=== PATIENT | female | born 1990 | race African-American/Black ===

== ENCOUNTER 2020-03-31 02:15 | Inpatient (IN) ==
[2020-03-31] MEDS ORDERED: LACTATED RINGERS 500 ML IV ONE (03:04)
[2020-03-31] MEDS ORDERED: ONDANSETRON 4 MG/2 ML VIAL IV PRN ×3 (03:12→16:04)
[2020-03-31] MEDS ORDERED: MEPERIDINE 50 MG/1 ML VIAL IV PRN (03:12)
[2020-03-31] MEDS ORDERED: LACTATED RINGERS 1,000 ML IV ONE (03:20)
[2020-03-31] MEDS ORDERED: TERBUTALINE 1 MG/1 ML VIAL SUBCUT ONE (04:36)
[2020-03-31] MEDS ORDERED: BUTORPHANOL 2 MG/ML VIAL IV ONE (05:53)
[2020-03-31] MEDS ORDERED: BUTORPHANOL 2 MG/ML VIAL ONE (05:55)
[2020-03-31] MEDS ORDERED: LACTATED RINGERS 1,000 ML IV PRN (10:34)
[2020-03-31] MEDS ORDERED: FAMOTIDINE 20 MG/2 ML VIAL IV ONE (10:39)
[2020-03-31] MEDS ORDERED: ePHEDrine 50 MG/ML AMP IV PRN (10:39)
[2020-03-31] MEDS ORDERED: CITRIC ACID/SODIUM CITRATE 30 ML UDCUP PO ONE (10:39)
[2020-03-31 10:56] LABS: Basophils % 0.1 % (0.0-0.8); Hematocrit 33.7 VOL% (35.7-47.0); Hemoglobin 10.6 GM/DL (12.0-16.0); Immature Granulocytes % 0.5 %; Immature Granulocytes Absolute 0.06 #; Lymphocytes # 0.7 10*3/uL (1.4-4.0); Lymphocytes % 6.3 % (21.3-54.2); Mean Corpuscular HGB Conc 31.5 GM/DL (32-36); Monocytes % 3.5 % (1.7-12.7); Neutrophils % 89.6 % (38.7-73.9); Platelet Count 229 T/CUMM (130-400); Red Blood Count 4.21 MC/CUMM (3.8-5.5); Red Cell Distribution Width 15.2 % (9.3-17.3); White Blood Count 11.1 T/CUMM (4-12)
[2020-03-31] MEDS ORDERED: fentaNYL 2 MCG/ROPIV 0.2% EPID 100 ML EPIDURAL SCH (11:00)
[2020-03-31] MEDS ORDERED: OXYTOCIN/LR 20 UNIT/1,000 ML BAG IV SCH (11:00)
[2020-03-31] MEDS ORDERED: OXYTOCIN/LR 30 UNIT/1,000 ML BAG IV ONE (11:01)
[2020-03-31 13:25] LABS: Apearance,Urine CLEAR (Clear); Bilirubin,Urine Negative (Negative); Blood, Urine Negative (Negative); Glucose,Urine (UA) Negative (Negative); Ketones,Urine 5 mg/dL (Negative); Mucus,Urine Occasional /LPF (Occasional); Nitrite,Urine Negative (Negative); Protein,Urine Negative; Urine Color Straw (Yellow); Urine Specific Gravity 1.005 (1.001-1.035); Urine Urobilinogen < 2.0 EU/DL (0.2-1.0); WBC,Urine 1 /HPF (0-6)
[2020-03-31] MEDS ORDERED: miSOPROStoL 200 MCG TABLET ONE (14:39)
[2020-03-31] MEDS ORDERED: CARBOPROST TROMETHAMINE 250 MCG/ML AMP IM ONE (14:40)
[2020-03-31] MEDS ORDERED: METHYLERGONOVINE 0.2 MG/1 ML AMP ONE (14:40)
[2020-03-31 15:48] LABS: Cord Arterial Blood HCO3 15.3 MMOL/L
[2020-03-31 15:51] LABS: Cord Venous Blood HCO3 17.3 MMOL/L; Cord Venous Blood PCO2 54.7 MMHG; Cord Venous Blood PO2 21.6
[2020-03-31] MEDS ORDERED: oxyCODONE/ACETAMINOPHEN 5-325 MG TABLET PO PRN (16:04)
[2020-03-31] MEDS ORDERED: HYDROCORTISONE 2.5% RECTAL CREAM 30 GM TUBE TOP PRN (16:04)
[2020-03-31] MEDS ORDERED: ACETAMINOPHEN 325 MG TABLET PO PRN (16:04)
[2020-03-31] MEDS ORDERED: BISACODYL 10 MG SUPP RECTAL PRN (16:04)
[2020-03-31] MEDS ORDERED: LANOLIN 50% CREAM 0.3 OZ TUBE TOP PRN (16:04)
[2020-03-31] MEDS ORDERED: WITCH HAZEL PADS 100/JAR TOP PRN (16:04)
[2020-03-31] MEDS ORDERED: DIPH/TET/ACEL PERT BOOSTER VACCINE 0.5 ML VIAL IM ONE (16:04)
[2020-03-31] MEDS ORDERED: BENZOCAINE 20%/MENTHOL 0.5% SPRAY 56 GM CAN TOP PRN (16:04)
[2020-03-31] MEDS ORDERED: MEASLES/MUMPS/RUBELLA VACCINE 0.5 ML VIAL SUBCUT ONE (16:04)
[2020-03-31] MEDS ORDERED: RHO(D) IMMUNE GLOBULIN 300 MCG SYRINGE IM ONE (16:04)
[2020-03-31] MEDS ORDERED: OXYTOCIN/LR 20 UNIT/1,000 ML BAG IV ONE (16:04)
[2020-03-31 18:55] LABS: HIV Antigen/Antibody Result Nonreactive (Nonreactive); Hepatitis B Surface Ag Quant 0.12 Index; Hepatitis B Surface Ag Result Negative (Negative)
[2020-03-31 19:02] LABS: Hematocrit 29.7 VOL% (35.7-47.0); Hemoglobin 9.3 GM/DL (12.0-16.0)
[2020-03-31] MEDS: IBUPROFEN 800 MG TABLET PO PRN (19:55)
[2020-03-31] MEDS: DOCUSATE SODIUM 100 MG CAPSULE PO SCH (23:15)
[2020-04-01 03:17] LABS: Basophils % 0.1 % (0.0-0.8); Hematocrit 28.2 VOL% (35.7-47.0); Hemoglobin 8.8 GM/DL (12.0-16.0); Immature Granulocytes % 0.4 %; Immature Granulocytes Absolute 0.06 #; Lymphocytes % 14.9 % (21.3-54.2); Mean Corpuscular HGB Conc 31.2 GM/DL (32-36); Mean Corpuscular Volume 80.3 FL (87-102); Monocytes % 8.2 % (1.7-12.7); Neutrophils % 76.4 % (38.7-73.9); Platelet Count 221 T/CUMM (130-400); Red Blood Count 3.51 MC/CUMM (3.8-5.5); Red Cell Distribution Width 15.2 % (9.3-17.3); White Blood Count 13.5 T/CUMM (4-12)
[2020-04-01] MEDS: FERROUS SULFATE 325 MG TABLET PO SCH ×2 (08:41→21:25)
[2020-04-01] MEDS: DOCUSATE SODIUM 100 MG CAPSULE PO SCH ×2 (08:41→21:25)
[2020-04-01] MEDS: IBUPROFEN 800 MG TABLET PO PRN ×2 (08:50→18:30)
[2020-04-01] MEDS: oxyCODONE/ACETAMINOPHEN 5-325 MG TABLET PO PRN ×2 (08:50→18:30)
[2020-04-01] MEDS ORDERED: FERROUS SULFATE 325 MG TABLET PO SCH (09:00)
[2020-04-02 07:42] VITALS: BP 111/68
[2020-04-02] MEDS: DOCUSATE SODIUM 100 MG CAPSULE PO SCH (08:31)
[2020-04-02] MEDS: FERROUS SULFATE 325 MG TABLET PO SCH (08:31)
[2020-04-02] MEDS: oxyCODONE/ACETAMINOPHEN 5-325 MG TABLET PO PRN (09:50)
[2020-04-02] MEDS: IBUPROFEN 800 MG TABLET PO PRN (09:50)
== END 2020-04-02 14:25 | disposition home or self-care (01) | DRG 807 ==
LOC: N.LDOUT 02:15 → N.LD 02:18 → N.OB 21:38
PROVIDERS: ADMIT Obstetrics & Gynecology; ATTEND Obstetrics & Gynecology